=== PATIENT | male | born 1980 | race Caucasian/White ===

== ENCOUNTER 2021-04-22 15:30 | Emergency (ER) | payer OTHER ==
[~2021-04-22] VITALS: Ht 175.3 cm; Wt 140.6 kg
[2021-04-22 15:34] VITALS: BP 136/63
--- NOTE | 2021-04-22 15:37 | NUR ---
BIBA TO BED 11
--- NOTE | 2021-04-22 15:39 | NUR ---
40 Y/O MALE BIBA C/O ETOH XTODAY. PER EMS PT WAS WAITING FOR HIS CAR TO BE FIXED, WENT TO THE BAR AND STARTED DRINKING. UNKNOWN AMOUNT OF ALCOHOL CONSUMED. DENIES ANY DRUG USE. GCS 15. MEDHX: ASTHMA NKA
--- NOTE | 2021-04-22 15:40 | NUR ---
BEAN RUBIO EXAMINING PT
[2021-04-22 15:57] VITALS: BP 136/63
--- NOTE | 2021-04-22 15:57 | NUR ---
PATIENT ELOPED FROM FACILITY. DISCHARGE INSTRUCTIONS NOT GIVEN TO PATIENT. Jeff NOTIFIED.
== END 2021-04-22 15:57 | disposition left against medical advice (07) ==
LOC: MED 15:30
DX: F10.129 Alcohol abuse with intoxication, unspecified (principal); Y90.9 Presence of alcohol in blood, level not specified
CPT/HCPCS: 99283